=== PATIENT | female | born 1970 | race Caucasian/White ===

== ENCOUNTER → 2017-10-23 | Outpatient (CLI) | payer OTHER ==
[~2017-10-23] MED LIST: LEXAPRO20 MG PO; TRAZODONE50 M1 PO; VITAMIN D1 TA1; XANAX0.5 MG PO
== END | disposition home or self-care (01) ==
LOC: MI 10:00
PROC: BR37ZZZ Magnetic Resonance Imaging (MRI) of Thoracic Spine (ICD-10-PCS; principal; 2017-10-23)
DX: M54.5 Low back pain (principal)

== ENCOUNTER 2018-08-21 07:46 | Day surgery (SDC) | payer OTHER ==
[~2018-08-21] VITALS: Ht 149.9 cm; Wt 69.8 kg
[2018-08-21 08:08] VITALS: BP 138/81
[2018-08-21 12:11] VITALS: BP 137/83
== END 2018-08-21 11:30 | disposition home or self-care (01) ==
LOC: GI 07:46 → OR 10:30 → GI 11:30
PROVIDERS: Internal Medicine Gastroenterology
PROC: 0DB68ZX Excision of Stomach, Via Natural or Artificial Opening Endoscopic, Diagnostic (ICD-10-PCS; principal; 2018-08-21 10:30)
DX: K29.50 Unspecified chronic gastritis without bleeding (principal); K21.9 Gastro-esophageal reflux disease without esophagitis; F41.9 Anxiety disorder, unspecified; F32.9 Major depressive disorder, single episode, unspecified
CPT/HCPCS: 43235; J1200; J1610; J2250; J2310; J3010; J3490

== ENCOUNTER 2018-11-22 08:42 | Emergency (ER) | payer OTHER ==
[~2018-11-22] VITALS: Ht 154.9 cm; Wt 71.2 kg
[2018-11-22 08:53] VITALS: BP 131/86; Ht 154.9 cm; Wt 71.2 kg
== END 2018-11-22 10:30 | disposition home or self-care (01) ==
LOC: ED 08:42
DX: M67.471 Ganglion, right ankle and foot (principal); F41.9 Anxiety disorder, unspecified; Z98.890 Other specified postprocedural states; Z88.5 Allergy status to narcotic agent

== ENCOUNTER → 2019-01-29 | Day surgery (SDC) | payer OTHER | LOC: DS 07:20 → GI 09:30 → OR 09:30 ==